=== PATIENT | female | born 1985 | race Hispanic/Latino ===

== ENCOUNTER → 2019-05-04 | Day surgery (SDC) | payer BC ==
[~2019-05-04] MED LIST: BUPIVACAINE 0.25%/EPI 30ML SDV INJ ONE; CEFAZOLIN SOD 1 GM/NS 50ML 100 ML IV ONE; DEXAMETHASONE SOD PHOS INJ 4 MG/ML VIAL ONE; DITROPAN XL5 MG PO; FENTANYL CITRATE/PF 100MCG/2 ML INJ ONE; GLYCOPYRROLATE INJ 1MG/ 5 ML SYR ONE; KETOROLAC TROMETHAMINE 30 MG/ML VIAL ONE; LABETALOL HCL 0 ML ONE; LIDOCAINE HCL 2% LOCAL INJ 5 ML SDV VIAL INJ ONE; MIDAZOLAM HCL 2 MG/2 ML VIAL ONE; NEOSTIGMINE 5 MG/5ML SYR ONE; ONDANSETRON HCL INJ 2MG/ML 2ML 2 MG/ML VIAL ONE; PROPOFOL IV EMULSION 10 MG/ML 20 ML VIAL ONE; ROCURONIUM BROMIDE 10 MG/ML 5ML VIAL ONE; SEVOFLURANE INHAL SOLN 250 ML PEN BTL ONE; SUGAMMADEX SODIUM 200 MG/2 ML VIAL IV ONE; TYLENOL WITH C1 EACH PO
[2019-05-04 19:13] VITALS: BP 140/94
--- NOTE | 2019-05-04 19:50 | Operative Report ---
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 TITLE OF PROCEDURE: Diagnostic laparoscopy, left oophorectomy. SPORTS MANAGER: Dr. Scooby Shore. ANESTHESIA: General with Dr. Fonseca and Danisha, child welfare assistant. 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 She has had left lower quadrant pain from the tumor and she is here now for laparoscopic left oophorectomy with possible left salpingo-oophorectomy. She desires to retain the tube and her fertility if possible. FINDINGS AT SURGERY: There was a 7 cm left ovarian dermoid. There were normal tubes and uterus and right ovary. There were no adhesions. There was fat, hair and cartilage noted within the tumor. PROCEDURE IN DETAIL: The patient was taken to the operating room and placed on the table in a supine position. General anesthesia was administered. The patient was then placed in the lithotomy position. A Up catheter was placed in the bladder for constant drainage. A sponge stick was placed in the vagina for possible manipulation. We then put the patient back in the supine position and changed gloves and proceeded with the laparoscopy. A small incision was made just superior to the umbilicus in the midline. The trocar was inserted through the incision into the peritoneal cavity. A pneumoperitoneum was created by insufflation of 4 L of carbon dioxide gas and a filling pressure of 8-10 mmHg. The laparoscope was placed with a confirmation of the peritoneal cavity being entered. Second trocar was placed in the left lower quadrant under direct visualization by laparoscopy and a 3rd trocar was placed in the right lower quadrant under direct visualization by laparoscopy. The last trocar would be 15 mm trocar. Immediately the 7 cm left ovarian mass was noted. It was floating on top of the omentum. There were no adhesions there. The right ovary was within normal limits. The left and right tubes were within normal limits. The uterus was within normal limits. Attention was turned to the infundibulopelvic ligament and the ovary was grasped with the LigaSure instrument, keeping the tube from the ovary and leaving the tube behind. Infundibulopelvic ligament was grasped, cauterized twice and then cut and then a small portion of the infundibulopelvic ligament without vasculature was remained and it was grasped with the LigaSure instrument, clamped, cauterized and cut, and then a 3rd spot was clamped, cauterized and cut and then the ovarian mass was free. A 15 mm laparoscopic bag was then placed. The tumor was easily manipulated into the bag and the bag was lifted out working with instruments transabdominally. The tumor was crushed and all the fat was sucked out, pieces of hair and cartilage were brought out using the instruments and placed in a specimen jar for pathologic examination. This was continued in steps until all the tumor was removed and then the bag was removed. There was no evidence of any spillage of the tumor into the peritoneal cavity. At this point, we inspected the fascia and the 15 mm trocar site was then closed using Vicryl stitch and then we irrigated the incisions and then closed them with inverted stitches of 4-0 Monocryl suture thus completing the procedure. There were no complications noted. Estimated blood loss was 25 mL. The patient tolerated the procedure well, was transferred from the operating room to the recovery room in stable condition. Dr. Shore assisted with retraction, hemostasis, visualization, suturing, irrigation and suctioning. MD TAY Carrera/MODL /[id number]
== END | disposition home or self-care (01) ==
LOC: OR 12:44
PROVIDERS: ATTEND Obstetrics & Gynecology
DX: D27.1 Benign neoplasm of left ovary (principal); N20.0 Calculus of kidney; E28.2 Polycystic ovarian syndrome
CPT/HCPCS: 58661; 81025; 88305; J0690; J1100; J1885; J2001; J2250; J2405; J2704; J3010; J3490; 88304